=== PATIENT | female | born 1970 | race Hispanic/Latino ===

== ENCOUNTER 2018-02-14 15:37 | Emergency (ER) | payer OTHER ==
[2018-02-14 15:43] VITALS: RESP 16
[2018-02-14] MEDS ORDERED: Sodium Chloride 0.9% 1,000 ML IV STA (16:07)
--- NOTE | 2018-02-14 16:18 | ED PDOC ---
HPI: Back Time Seen by Provider: 02/14/18 15:46 Chief Complaint (Nursing): Back Pain Chief Complaint (Provider): Back Pain History Per: Patient History/Exam Limitations: no limitations Onset/Duration Of Symptoms: Days (X3), Gradual Current Symptoms Are (Timing): Still Present Exacerbating Factor(s): Other (Walking) Additional Complaint(s): 48 y/o female with a PMHx of one kidney stone presents to the ED complaining of gradual, constant left lower abdominal pain, onset three days ago. Patient reports pain radiates to the left lumbar area and down the front of her left leg. Patient states pain initially improved with Ibuprofen but is now persistent despite medications. Patient reports pain worsens when walking. Patient states pain is similar to menstrual pain but worse and doesn't radiate down to her leg. Additionally, patient reports of cold chills. Denies numbness, injury, abnormal vaginal discharge, urinary symptoms, nausea, vomiting, diarrhea , and constipation. PMD: Dr. Kowalski of [place], [place] LNMP: Currently on Past Medical History Reviewed: Historical Data, Nursing Documentation, Vital Signs Vital Signs: Last Vital Signs Temp 97.9 F 02/14/18 15:40 Pulse 75 02/14/18 15:40 Resp 16 02/14/18 15:40 BP 169/97 H 02/14/18 15:40 Pulse Ox 99 02/14/18 15:40 - Medical History PMH: Kidney Stones (one) - Surgical History Surgical History: Tonsillectomy Other surgeries: endometrial ablation, plolycystectomy and gastric bypass - Family History Family History: States: Hypertension Other Family History: cancer - Social History Current smoker - smoking cessation education provided: No Alcohol: Social Drugs: Denies - Home Medications Home Medications: Ambulatory Orders Medication Instructions Recorded Cyclobenzaprine [Flexeril] 5 mg PO Q8 PRN #15 tab 02/14/18 Naproxen [Naprosyn] 1 tab PO BID PRN #30 tab 02/14/18 traMADol [Ultram] 50 mg PO TID PRN #15 tab 02/14/18 - Allergies Allergies/Adverse Reactions: Allergies Allergy/AdvReac Type Severity Reaction Status Date / Time codeine AdvReac VOMITING Verified 02/14/18 15:40 Review of Systems ROS Statement: Except As Marked, All Systems Reviewed And Found Negative (as per HPI) Constitutional: Positive for: Chills Gastrointestinal: Positive for: Abdominal Pain (left lower quadrant). Negative for: Nausea, Vomiting, Diarrhea, Constipation Genitourinary Female: Negative for: Vaginal Bleeding (abnormal) Musculoskeletal: Positive for: Back Pain (left lumbar), Leg Pain (left front thigh) Neurological: Negative for: Numbness Physical Exam - Reviewed Nursing Documentation Reviewed: Yes Vital Signs Reviewed: Yes - Physical Exam Appears: Positive for: Non-toxic, In Acute Distress (mild) Head Exam: Positive for: ATRAUMATIC, NORMOCEPHALIC Skin: Positive for: Warm, Dry Eye Exam: Positive for: EOMI, PERRL Neck: Positive for: Painless ROM, Trachea Midline Respiratory: Negative for: Accessory Muscle Use, Respiratory Distress Gastrointestinal/Abdominal: Positive for: Normal Exam, Soft, Tenderness (to palpation to left lower quadrant, left pelvic area and left inguinal area). Negative for: Distended, Guarding, Rebound Back: Positive for: Normal Inspection, Other (Tenderness to left SI joint and left paraspinal lumbar area). Negative for: L CVA Tenderness, R CVA Tenderness , Vertebral Tenderness Extremity: Positive for: Normal ROM, Other (straight leg raise test of left leg is positive) Neurologic/Psych: Positive for: Alert. Negative for: Motor/Sensory Deficits - Laboratory Results Result Diagrams: 02/14/18 16:45 02/14/18 16:45 - ECG O2 Sat by Pulse Oximetry: 99 (RA) Pulse Ox Interpretation: Normal Medical Decision Making Medical Decision Making: Time:1607 Impression: Left Lower Quadrant Pain Differentials include but not limited to lumbar radiculopathy, ovarian cysts, dysmenorrhea, kidney stones, diverticulitis Plan: -- Urine Drug Screen -- ED Urine -- ED Urine Dipstick -- Flexeril 10 mg PO -- Sodium Chloride IV 999 mls/hr -- Toradol 30 mg IVP -- Tylenol 975 mg PO -- IV Insertion -- Transvaginal US -- Bloodwork Accession No. : [id number] Patient Name / ID : KJ Catherine / [id number] Exam Date : 02/14/2018 16:12:29 ( Approved ) Study Comment : Sex / Age : F / 48Y Creator : Peterson Velazquez MD Dictator : Peterson Velazquez MD Supreme Court Justice : Patent Paralegal : Peterson Velazquez MD Approver2 : Report Date : 02/14/2018 17:53:34 My Comment : HISTORY: L pelvic pain COMPARISON: None available. TECHNIQUE: Grayscale, color Doppler and spectral evaluation of the pelvis performed transvaginally. FINDINGS: UTERUS: Measures 7.5 x 5.0 x 4.5 cm. Anteverted. Normal in size and appearance. No fibroid or other mass lesion seen. ENDOMETRIUM: Measures 12 mm in diameter. Unremarkable. CERVIX: Multiple nabothian cysts. No cervical abnormality identified. RIGHT OVARY: Measures 2.6 x 1.6 x 2.3 cm. No solid mass. Normal flow. LEFT OVARY: Measures 4.6 x 2.6 x 2.7 cm. No solid mass. Normal flow. FREE FLUID: No significant free fluid noted. OTHER FINDINGS: None. IMPRESSION: Unremarkable pelvic ultrasound. Labs unremarkable. 1800 On reeval pt feels better. DW pt findings and plan of care. 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 Scribe Attestation: Documented by Guillaume Pinedo acting as a scribe for Dr. Janneth Peters. Provider Scribe Attestation: All medical record entries made by the Scribe were at my direction and personally dictated by me. I have reviewed the chart and agree that the record accurately reflects my personal performance of the history, physical exam, medical decision making, and the department course for this patient. I have also personally directed, reviewed, and agree with the discharge instructions and disposition. Disposition - Clinical Impression Clinical Impression: Ovarian cyst, Dysmenorrhea, Low back pain Counseled Patient/Family Regarding: Studies Performed, Diagnosis, Need For Followup, Rx Given - Disposition Disposition: Routine/Home Disposition Time: 17:52 Condition: IMPROVED Additional Instructions: FOLLOW UP WITH YOUR DOCTOR TOMORROW FOR REEVALUATION REST AND AVOID ANY STRENUOUS ACTIVITY FOR THE NEXT 2 DAYS. MARKEL UNDERWOOD, thank you for letting us take care of you today. Your provider was Janneth Peters MD and you were treated for SEVERE ABD PAIN. The emergency medical care you received today was directed at your acute symptoms. If you were prescribed any medication, please fill it and take as directed. It may take several days for your symptoms to resolve. Return to the Emergency Department if your symptoms worsen, do not improve, or if you have any other problems. Please contact your doctor or call one of the physicians/clinics you have been referred to that are listed on the Patient Visit Information form that is included in your discharge packet. Bring any paperwork you were given at discharge with you along with any medications you are taking to your follow up visit. Our treatment cannot replace ongoing medical care by a primary care provider outside of the emergency department. Thank you for allowing the [facility] team to be part of your care today. If you had an X-Ray or CT scan: A Radiologist will review the ED reading if any change in treatment is needed we will contact you. Prescriptions: Cyclobenzaprine [Flexeril] 5 mg PO Q8 PRN #15 tab PRN Reason: muscle spasm Naproxen [Naprosyn] 1 tab PO BID PRN #30 tab PRN Reason: Pain traMADol [Ultram] 50 mg PO TID PRN #15 tab PRN Reason: severe pain only Instructions: Ovarian Cysts, Menstrual Cramps (DC), Low Back Pain in Adults Forms: [facility] ED School/Work Excuse
[2018-02-14 16:28] LABS: BARBITURATES, UR NEGATIVE (NEGATIVE); BENZODIAZEPINES, UR NEGATIVE (NEGATIVE); OPIATES, UR NEGATIVE (NEGATIVE); PHENCYCLIDINE, UR NEGATIVE (NEGATIVE)
[2018-02-14 16:52] LABS: BASO % 0.3 % (0.0-2.0); EOS # 0.1 K/uL (0.0-0.7); EOS % 0.6 % (0.0-4.0); HEMOGLOBIN 11.1 g/dL (12.0-16.0); LYMPH # 1.5 K/uL (1.0-4.3); LYMPH % 14.3 % (20.0-40.0); MEAN CELL VOLUME 76.1 fl (81.0-99.0); MEAN CORPUSCULAR HEMOGLOBIN 24.6 pg (27.0-31.0); MEAN CORPUSCULAR HGB CONC 32.2 g/dL (33.0-37.0); MEAN PLATELET VOLUME 9.6 fl (7.2-11.7); MONO # 0.6 K/uL (0.0-0.8); MONO % 6.1 % (0.0-10.0); NEUT % 78.7 % (50.0-75.0); RBC 4.53 Mil/uL (3.80-5.20); RED CELL DISTRIBUTION WIDTH 16.7 % (11.5-14.5); WHITE BLOOD COUNT 10.2 K/uL (4.8-10.8)
[2018-02-14 17:11] LABS: ALB/GLOB RATIO 1.3 (1.0-2.1); ALBUMIN 4.1 g/dL (3.5-5.0); ALT/SGPT 22 U/L (9-52); AST/SGOT 22 U/L (14-36); BLOOD UREA NITROGEN 18 mg/dl (7-17); CALCIUM 10.2 mg/dL (8.4-10.2); GFR AFRICAN-AMERICAN > 60; GFR NON-AFRICAN AMERICAN > 60
--- NOTE | 2018-02-14 17:55 | US ---
HISTORY: L pelvic pain COMPARISON: None available. TECHNIQUE: Grayscale, color Doppler and spectral evaluation of the pelvis performed transvaginally. FINDINGS: UTERUS: Measures 7.5 x 5.0 x 4.5 cm. Anteverted. Normal in size and appearance. No fibroid or other mass lesion seen. ENDOMETRIUM: Measures 12 mm in diameter. Unremarkable. CERVIX: Multiple nabothian cysts. No cervical abnormality identified. RIGHT OVARY: Measures 2.6 x 1.6 x 2.3 cm. No solid mass. Normal flow. LEFT OVARY: Measures 4.6 x 2.6 x 2.7 cm. No solid mass. Normal flow. FREE FLUID: No significant free fluid noted. OTHER FINDINGS: None. IMPRESSION: Unremarkable pelvic ultrasound.
[2018-02-14 18:11] VITALS: BP 136/74; PULSE 61; TEMP 98.1; O2SAT 97
== END 2018-02-14 18:20 | disposition home or self-care (01) ==
LOC: H.ER 15:37
DX: N83.202 Unspecified ovarian cyst, left side (principal); N94.6 Dysmenorrhea, unspecified; M54.5 Low back pain; Z88.5 Allergy status to narcotic agent; M54.16 Radiculopathy, lumbar region
CPT/HCPCS: 76830; 80053; 80324; 80345; 80346; 80349; 80353; 80358; 80361; 81025; 83992; 85025; 96361; 96374; 99284; J1885; J7030